=== PATIENT | female | born 1990 | race Caucasian/White ===

== ENCOUNTER 2016-04-14 01:49 | Emergency (ER) | payer OTHER ==
[2016-04-14 01:50] VITALS: BMI 17.7
[2016-04-14 01:59] VITALS: BP 145/90; TEMP 98.9
[2016-04-14] MEDS ORDERED: MOTRIN PO STA (02:09)
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
== END 2016-04-14 04:05 | disposition home or self-care (01) ==
LOC: ED 01:49
DX: S09.90XA Unspecified injury of head, initial encounter (principal); S69.92XA Unspecified injury of left wrist, hand and finger(s), initial encounter; S01.511A Laceration without foreign body of lip, initial encounter; S00.03XA Contusion of scalp, initial encounter; Y04.2XXA Assault by strike against or bumped into by another person, initial encounter; Y92.009 Unspecified place in unspecified non-institutional (private) residence as the place of occurrence of the external cause
CPT/HCPCS: 99283